=== PATIENT | male | born 1960 | race Two or more races ===

== ENCOUNTER 2023-02-24 08:40 | Emergency (ER) | payer OTHER ==
[~2023-02-24] VITALS: Ht 167.6 cm; Wt 90.0 kg
[2023-02-24 09:29] VITALS: BP 140/86
[2023-02-24] MEDS ORDERED: LIDOCAINE 1% HCL (LOCAL ANESTH.) INJ 20ML MDV IJ ONE (09:30)
[2023-02-24] MEDS ORDERED: TETANUS-DIPTH-ACEL PERTUSSIS 0.5ML SYR Tdap IM ONE (09:45)
[2023-02-24] MEDS ORDERED: CEPH-510 PO (10:51)
[2023-02-24] MEDS ORDERED: IBUP800T27 PO (10:51)
== END 2023-02-24 10:56 | disposition home or self-care (01) ==
LOC: ER 08:40
DX: S01.111A Laceration without foreign body of right eyelid and periocular area, initial encounter (principal); I10 Essential (primary) hypertension; R51.9 Headache, unspecified; W01.0XXA Fall on same level from slipping, tripping and stumbling without subsequent striking against object, initial encounter; Y93.89 Activity, other specified; Y92.69 Other specified industrial and construction area as the place of occurrence of the external cause; Y99.8 Other external cause status
CPT/HCPCS: 12013; 70486; 90471; 90715; 99285; J2001